=== PATIENT | female | born 1950 | race Caucasian/White ===

== ENCOUNTER 2021-09-10 15:52 | Emergency (ER) | payer MEDICARE ==
[~2021-09-10] VITALS: Ht 160 cm; Wt 75.0 kg
[2021-09-10] MEDS ORDERED: METF-1211 PO (16:35)
[2021-09-10] MEDS ORDERED: ATOR40TA71 PO (16:39)
[2021-09-10] MEDS ORDERED: GLIP10TA9 PO (16:39)
[2021-09-10] MEDS ORDERED: HYDR25TA PO (16:39)
[2021-09-10] MEDS ORDERED: LISI40TA9 PO (16:39)
[2021-09-10] MEDS ORDERED: CLOP75TA32 PO (16:39)
[2021-09-10] MEDS ORDERED: GABA-529 PO (16:39)
[2021-09-10] MEDS ORDERED: DEXTROSE 50%-WATER 25 GM/50 ML SYRINGE IVP ONE (16:45)
[2021-09-10 16:51] LABS: GLUCOMETER DEV NAME(LOC) ERT.5; GLUCOSE,POINT OF CARE 47 MG/DL (70-110)
[2021-09-10 17:05] LABS: BASOPHILS % (AUTO) 0.6 % (0.0-2.0); EOSINOPHILS % (AUTO) 0.5 % (1.0-6.0); HEMATOCRIT 33.9 % (36-46); HEMOGLOBIN 10.9 g/dL (12.0-16.0); LYMPHOCYTES # (AUTO) 0.8 K/uL (1.0-4.8); LYMPHOCYTES % (AUTO) 7.8 % (22.0-44.0); MEAN CORPUSCULAR HEMOGLOBIN 29.4 pg (26.0-34.0); MEAN CORPUSCULAR HGB CONC 32.1 G/dL (31.0-37.0); MEAN CORPUSCULAR VOLUME 92 fL (80-100); MONOCYTES # (AUTO) 0.5 K/uL (0.1-1.0); MONOCYTES % (AUTO) 5.1 % (2.0-9.0); NEUTROPHILS # (AUTO) 9.1 K/uL (1.8-7.7); PLATELET COUNT (AUTO) 221 K/uL (150-450); RED CELL DISTRIBUTION WIDTH 15.9 % (11.5-14.5)
[2021-09-10 17:18] LABS: ALBUMIN 2.4 g/dL (3.4-5.0); BILIRUBIN,TOTAL 0.1 mg/dL (0.1-1.0); CALCIUM, TOTAL 8.7 mg/dL (8.8-10.5); CREATININE 1.45 mg/dL (0.60-1.30); POTASSIUM 5.2 mmol/L (3.5-5.1)
[2021-09-10 17:55] LABS: GLUCOMETER DEV NAME(LOC) ERT.5; GLUCOSE,POINT OF CARE 182 MG/DL (70-110)
[2021-09-10 18:45] LABS: GLUCOMETER DEV NAME(LOC) ERT.5; GLUCOSE,POINT OF CARE 151 MG/DL (70-110)
[2021-09-10 19:28] VITALS: BP 186/76
[2021-09-10 19:37] LABS: GLUCOMETER DEV NAME(LOC) ERT.5; GLUCOSE,POINT OF CARE 117 MG/DL (70-110)
== END 2021-09-10 19:43 | disposition home or self-care (01) ==
LOC: EMS 16:14
DX: E11.649 Type 2 diabetes mellitus with hypoglycemia without coma (principal); F17.210 Nicotine dependence, cigarettes, uncomplicated; Z79.84 Long term (current) use of oral hypoglycemic drugs; Z79.899 Other long term (current) drug therapy
CPT/HCPCS: 80053; 82962; 85025; 96374; 99283